=== PATIENT | male | born 1960 | race Hispanic/Latino ===

== ENCOUNTER 2019-01-21 08:29 | Day surgery (SDC) | payer BC ==
[2019-01-20 15:34] LABS: BASOPHILS % (AUTO) 2.2 % (0.0-5.0); EOSINOPHILS % (AUTO) 4.2 % (0.0-8.0); HEMATOCRIT 47.3 % (42-54); LYMPHOCYTES % (AUTO) 25.8 % (21.0-51.0); MEAN CORPUSCULAR HGB CONC 34.7 g/dL (32.0-36.0); MEAN CORPUSCULAR VOLUME 86.7 fL (79-99); MONOCYTES % (AUTO) 6.9 % (3.0-13.0); NEUTROPHILS % (AUTO) 60.9 % (40.0-77.0); NUCLEATED RED BLOOD CELLS 0.1 % (0.0-0.19); PLATELET COUNT (AUTO) 214 K/uL (130-400); RED BLOOD CELL COUNT(AUTO) 5.46 MIL/uL (4.50-6.20); RED CELL DISTRIBUTION WIDTH 13.7 % (11.0-15.5); WHITE BLOOD COUNT (AUTO) 7.9 K/uL (4.8-10.8)
[2019-01-20 16:00] VITALS: BP 150/86
[2019-01-21] VITALS (17 sets, daily range): BP systolic 118–145; BP diastolic 71–88
[~2019-01-21] VITALS: Ht 177.8 cm; Wt 90.8 kg
[~2019-01-21 08:29] MED LIST: CLARITIN PO; FISH1CAP50 PO; LACTATED RINGERS 1000ML 1,000 ML IV SCH
[2019-01-21] MEDS ORDERED: LIDOCAINE PF 2% 5ML ABBOJECT ONE (09:52)
[2019-01-21] MEDS ORDERED: MIDAZOLAM HCL 1 MG/ML 2ML VIAL ONE (09:52)
[2019-01-21] MEDS ORDERED: FENTANYL CITRATE PF 50 MCG/1 ML 2ML VIAL ONE ×2 (09:53→11:02)
[2019-01-21] MEDS ORDERED: PROPOFOL 10 MG/ML 20ML VIAL IV ONE (09:53)
[2019-01-21] MEDS ORDERED: ROPIVACAINE 0.5% 5MG/ML 30ML IJ ONE (09:55)
[2019-01-21] MEDS ORDERED: ROCURONIUM 10MG/1ML SYR 10 MG/ML ML ONE (09:56)
[2019-01-21] MEDS ORDERED: KETOROLAC TROMETHAMINE 30MG/ML ONE (10:28)
[2019-01-21] MEDS ORDERED: ONDANSETRON HCL 4 MG/2 ML VIAL ONE (10:36)
[2019-01-21] MEDS ORDERED: GLYCOPYRROLATE 1 MG/5 ML SYRINGE ONE (10:51)
[2019-01-21] MEDS ORDERED: NEOSTIGMINE 5MG/5ML SYR IV ONE (10:51)
== END 2019-01-21 12:55 | disposition home or self-care (01) ==
LOC: DAH 08:29
PROVIDERS: ATTEND Surgery
DX: K40.90 Unilateral inguinal hernia, without obstruction or gangrene, not specified as recurrent (principal)
CPT/HCPCS: 36415; 49505; 85025; A4215; A4221; A4222; A4223; A4450; A4452; A4663; A6260; C1729; C1781; J1885; J2001; J2250; J2405; J2704; J2710; J2795; J3010 ×2; J3490; J7120